=== PATIENT | female | born 1970 | race Caucasian/White ===

== ENCOUNTER 2021-12-04 15:29 | Emergency (ER) | payer BC | END 2021-12-04 18:00 | disposition left against medical advice (07) | LOC: MW.ED 15:29 | DX: Z53.21 Procedure and treatment not carried out due to patient leaving prior to being seen by health care provider (principal) ==

== ENCOUNTER 2021-12-05 00:58 | Emergency (ER) | payer BC ==
[2021-12-05] MEDS ORDERED: Ondansetron 4 MG/2 ML SDV IVPUSH ONE (01:11)
[2021-12-05] MEDS ORDERED: Sodium Chloride 0.9% 1,000 ML IV ONE (01:11)
[2021-12-05] MEDS ORDERED: Morphine 4 MG/ML VIAL IVPUSH ONE (01:13)
[2021-12-05 01:52] LABS: CARBON DIOXIDE,CO2 27.9 mmol/L (21.0-32.0); POTASSIUM,K 4.1 mmol/L (3.5-5.1)
[2021-12-05] MEDS ORDERED: Iopamidol 755 Mg/ML 100 ML Bottle IVPUSH ONE (02:08)
== END 2021-12-05 03:16 | disposition home or self-care (01) ==
LOC: MW.ED 00:58
DX: R10.9 Unspecified abdominal pain (principal); Z88.5 Allergy status to narcotic agent
CPT/HCPCS: 36415; 74177; 80053; 81001; 83690; 85025; 96361; 96374; 99284; J2405; J7030; Q9967

== ENCOUNTER 2022-04-19 16:22 | Emergency (ER) | payer BC | END 2022-04-19 17:54 | disposition home or self-care (01) | LOC: MW.ED 16:22 | DX: M79.672 Pain in left foot (principal); Z88.5 Allergy status to narcotic agent; Z72.0 Tobacco use | CPT/HCPCS: 73620-26-LT; 73620-LT; 73650-26-LT; 73650-LT; 99283 ==

== ENCOUNTER 2023-04-20 05:37 | Emergency (ER) | payer BC ==
[2023-04-20] MEDS ORDERED: Sodium Chloride 0.9% 10 ML Syringe FLUSH PRN (06:01)
[2023-04-20] MEDS ORDERED: Sodium Chloride 0.9% 2.5 ML Syringe FLUSH PRN (06:01)
[2023-04-20] MEDS ORDERED: Lidocaine 2% Viscous Solution 15 ML UD PO ONE (06:14)
[2023-04-20 06:32] LABS: BASOPHILS ABSOLUTE AUTO 0.02 K/uL (0.00-0.20); BASOPHILS PERCENT AUTO 0.3 % (0.0-1.0); EOSINOPHILS ABSOLUTE AUTO 0.27 K/uL (0.00-0.45); EOSINOPHILS PERCENT AUTO 3.8 % (0.0-6.0); HEMATOCRIT 40.5 % (37.0-47.0); HEMOGLOBIN 13.6 g/dL (12.0-16.0); IMMATURE GRAN ABSOLUTE AUTO 0.01 K/uL (0.00-0.05); IMMATURE GRAN PERCENT AUTO 0.1 % (0.0-0.4); LYMPHOCYTES ABSOLUTE AUTO 1.87 K/uL (1.00-4.80); LYMPHOCYTES PERCENT AUTO 26.6 % (24.0-44.0); MEAN CORPUSCULAR HGB CONC 33.6 g/dL (32.0-36.0); MEAN CORPUSCULAR VOLUME 89.2 fL (83.0-99.0); MEAN PLATELET VOLUME 9.9 fL (9.4-12.3); MONOCYTES ABSOLUTE AUTO 0.49 K/uL (0.00-0.80); NEUTROPHILS ABSOLUTE AUTO 4.36 K/uL (1.80-7.70); NEUTROPHILS PERCENT AUTO 62.2 % (41.0-71.0); PLATELET COUNT,PLT 239 K/uL (150-400); RED BLOOD CELL COUNT 4.54 M/uL (4.10-5.30); WHITE BLOOD CELL COUNT,WBC 7.02 K/uL (3.9-11.3)
[2023-04-20 06:54] LABS: A/G RATIO 0.8 (0.9-1.6); ALBUMIN 3.1 g/dL (3.4-5.0); BILIRUBIN TOTAL 0.2 mg/dL (0.2-1.0); CARBON DIOXIDE,CO2 25.1 mmol/L (21.0-32.0); CREATININE 0.9 mg/dL (0.6-1.0); EST CRCL DRUG DOSING (CG) 67.67 mL/min; POTASSIUM,K 4.1 mmol/L (3.5-5.1); PROTEIN TOTAL,TP 7.1 g/dL (6.4-8.2)
[2023-04-20] MEDS ORDERED: Lidocaine 2% Viscous Solution 15 ML UD PO PRN (07:00)
[2023-04-20] MEDS ORDERED: Ibuprofen 800 MG Tab PO ONE (07:43)
[2023-04-20 07:58] LABS: CORONAVIRUS COVID-19 NAA NEGATIVE (NEGATIVE); INFLUENZA A NAA NEGATIVE (NEGATIVE); INFLUENZA B NAA NEGATIVE (NEGATIVE); RESPIRATORY SYNCYTIAL VIR NAA NEGATIVE (NEGATIVE)
== END 2023-04-20 08:46 | disposition home or self-care (01) ==
LOC: MW.ED 05:37
DX: R07.9 Chest pain, unspecified (principal); R05.9 Cough, unspecified; R59.1 Generalized enlarged lymph nodes; F17.210 Nicotine dependence, cigarettes, uncomplicated; Z86.16 Personal history of COVID-19; Z88.5 Allergy status to narcotic agent; Z88.8 Allergy status to other drugs, medicaments and biological substances
CPT/HCPCS: 0241U; 36415; 71046; 80053; 84484; 85025; 93005; 99285; A9270; J3490; 93010; 99282